=== PATIENT | female | born 1960 | race Caucasian/White ===

== ENCOUNTER 2019-07-21 03:10 | Emergency (ER) | payer SELFPAY ==
[~2019-07-21] VITALS: Ht 157.5 cm; Wt 66.0 kg
[2019-07-21] MEDS ORDERED: ACETAMINOPHEN 500MG TABLET PO ONE (04:30)
[2019-07-21 07:29] VITALS: BP 133/66
== END 2019-07-21 07:30 | disposition home or self-care (01) ==
LOC: ER 03:10
DX: S09.8XXA Other specified injuries of head, initial encounter (principal); S06.0X9A Concussion with loss of consciousness of unspecified duration, initial encounter; S63.91XA Sprain of unspecified part of right wrist and hand, initial encounter; M62.838 Other muscle spasm; W18.09XA Striking against other object with subsequent fall, initial encounter; Y93.9 Activity, unspecified; Y92.9 Unspecified place or not applicable; E11.9 Type 2 diabetes mellitus without complications; Z91.018 Allergy to other foods
CPT/HCPCS: 70450; 73130; 99284; Z7610